=== PATIENT | female | born 1965 | race Caucasian/White ===

== ENCOUNTER → 2018-04-17 | Outpatient (CLI) | payer MEDICAID | LOC: BMCIMAGING 13:24 | PROVIDERS: ATTEND Podiatrist Foot & Ankle Surgery | DX: R22.40 Localized swelling, mass and lump, unspecified lower limb (principal); Z96.7 Presence of other bone and tendon implants ==

== ENCOUNTER → 2018-11-06 | Outpatient (CLI) | payer MEDICAID | LOC: FIMAGING 13:02 | PROVIDERS: ATTEND Family Medicine | DX: Z12.31 Encounter for screening mammogram for malignant neoplasm of breast (principal) ==